=== PATIENT | male | born 1975 | race Caucasian/White ===

== ENCOUNTER 2024-11-21 07:07 | Emergency (ER) | payer OTHER, SELFPAY ==
[2024-11-21 07:17] VITALS: BP 130/90
--- NOTE | 2024-11-21 08:00 | ED.GENMED ---
History of Present Illness
General
Chief Complaint: Crisis Evaluation
Source: family
Time Seen by Provider: 11/21/24 07:38
History of Present Illness
History of Present Illness:
49-year-old male with no reported past medical history presenting to the ER with daughter and niece for evaluation after they were concerned about patient's mental health stating that the patient over the last few weeks has been accusing his of
cheating on him and trying to find evidence of the cheating on him. They are also stating that the patient believes that family members are not actually his children despite family noting that there is no reason for him to suspect that they
would not be his children. There is reported alcohol use however the daughter notes patient has not been drinking the last 2 days. They do state patient has not been sleeping very well and is up late into the middle of the night making lots of
noise difficult for everybody else to sleep. Patient has also been calling family within the [facility] attempting to figure out who his had on him with in the past. Patient is without any specific concerns at this time physically. Family
reports no history of mental health issues.
Past History
Past History
ED Past Medical History: None
ED Past Surgical History: None
Social History
Tobacco: Smoker
Alcohol: Daily
Drug: None
Personal:
Living: with family
Review of Systems
Review of Systems
All Other Systems: ROS reviewed and negative except as documented in HPI and ROS
Phy Exam
Physical Exam
Physical Exam:
GENERAL: Alert , in no apparent distress
EYE: conjunctiva clear
Head: Normocephalic atraumatic
NECK: Supple,
ENT: mmm.
LUNGS: no acute respiratory distress
NEUROLOGICAL: Alert and oriented
SKIN: Warm and dry, skin intact.
MUSCULOSKELETAL: well perfused.
PSYCH: Normal and appropriate interaction.
Scores
Heart Failure Risk
Heart Failure Risk Score: Not Applicable
Heart Score for Chest Pain Patients
STEMI patient?: Not applicable
Withdrawal Assessment of Alcohol
Withdrawal Assessment Completed?: Not applicable
Course
Orders/Labs/Results
Orders:
Orders
11/21/24 07:38
1:1 Observation - Suicide/ Violent Behavior As Directed
11/21/24 07:44
Crisis Consult Urgent
Reason for Consult: delusional behavior
Comment: Denies SI
11/21/24 08:16
Alcohol Urgent
Complete Blood Count/With Diff Urgent
Comprehensive Metabolic Panel Urgent
Drug Screen, Urine [Urine Drug Abuse Screen] Urgent
Date Specimen was Collected: 11/21/24
Time Specimen was Collected: 08:09
Abnormal Lab Results
11/21/24
08:16
WBC 11.2 H 10^3/uL
(4.8-10.8)
Absolute Neuts (auto) 9.2 H 10^3/uL
(1.4-6.5)
Absolute Lymphs (auto) 1.0 L 10^3/uL
(1.2-3.4)
Absolute Monos (auto) 0.9 H 10^3/uL
(0.1-0.6)
Neutrophils % 81.9 H %
(42.2-75.2)
Lymphocytes % 8.8 L %
(20.5-51.1)
BUN 6 L mg/dl
(9-20)
Glucose 118 H mg/dl
(70-99)
11/21/24 08:16
11/21/24 08:16
Vital Signs
Initial and Last Documented VS:
Initial Vital Signs
Temp Pulse Resp BP Pulse Ox
98.7 F 82 16 130/90 100
11/21/24 07:17 11/21/24 07:17 11/21/24 07:17 11/21/24 07:17 11/21/24 07:17
Last Documented Vital Signs
Temp Pulse Resp BP Pulse Ox
98.3 F 78 18 141/70 98
11/21/24 12:52 11/21/24 12:52 11/21/24 12:52 11/21/24 12:52 11/21/24 12:52
MDM/Problems Addressed
Differential Diagnosis Includes:
Alcohol abuse, psychosis, bipolar disorder, depression, minimal concern for any medical cause of delirium
MDM/Problems Addressed:
49-year-old male presenting to the ER for evaluation with family for reports of mental health issues. Patient believing has been cheating on him, very accusatory towards family, questionable increased alcohol intake. Patient calm and
cooperative here. He is in no acute distress. Labs including alcohol level ordered. Crisis consultation ordered. Disposition pending.
*Pulse Oximetry
Patient hypoxic: no
*Critical Care Note
Total Time (30-74mins, 75-104mins- exclusive of procedures): Not Applicable
Patient Management
Escalation/DeEscalation of care consider admission/obs:
Patient seen and cleared by crisis as well as had 302 petition denied. Patient not a candidate for voluntary psychiatric admission and is otherwise stable for discharge home and outpatient management.
ED Attending Note
-
Portions of this chart may have been created with voice recognition software.� Occasional wrong word or��sound alike� substitutions may have occurred due to the inherent limitations of voice recognition software.
Discharge Plan
Departure
Patient Disposition: Home (Routine Discharge)
Date of Disposition: 11/21/24
Time of Disposition: 12:30
Patient with high blood pressure during this ER visit?: No
Discharge Problem:
Alcohol use
Referrals:
NONE,* [Family Provider] -
Interventions
Interventions:
*Risk Screen - Suicide Last Done: 11/21/24 07:17
*General Assessment Last Done: 11/21/24 07:34
*Neglect/Abuse Screening Last Done: 11/21/24 07:17
ED- Fall Risk Assessment Last Done: 11/21/24 08:48
*ED COVID-19 Vaccine History Last Done: 11/21/24 07:17
*Nursing Disposition Last Done: 11/21/24 12:52
ED-Psychological Assessment Last Done: 11/21/24 08:47
Discharge Date and Time
Discharge Date/Time: 11/21/24 12:53
Print Language: Ukranian
[2024-11-21 08:33] LABS: % Basophils 0.4 % (0-2); % Eosinophils 0.4 % (0-6); % Immature Granulocytes 0.3 % (0-0.5); % Lymphocytes 8.8 % (20.5-51.1); % Monocytes 8.2 % (1.7-9.3); % Neutrophils 81.9 % (42.2-75.2); Absolute Basophils 0.1 10^3/uL (0-0.2); Absolute Eosinophils 0.1 10^3/uL (0-0.7); Absolute Monocytes 0.9 10^3/uL (0.1-0.6); Absolute Neutrophils 9.2 10^3/uL (1.4-6.5); Hematocrit 50.2 % (39.0-52.0); Hemoglobin 17.4 g/dL (13.0-18.0); Mean Corp Hgb Conc. 34.7 g/dL (33.0-37.0); Mean Corpuscular Hgb 30.4 pg (27.0-31.0); Mean Corpuscular Volume 87.6 fL (80.0-94.0); Mean Platelet Volume 9.2 fL (7.4-10.4); Nucleated Red Blood Cells % 0 % (-); Platelet Count 274 10^3/uL (130-400); Red Blood Cell Count 5.73 10^6/uL (4.70-6.10); Red Cell Dist. Width 13.3 % (11.5-14.5); White Blood Cell Count 11.2 10^3/uL (4.8-10.8)
[2024-11-21 08:44] LABS: ALT (SGPT) 38 U/L (0-50); AST (SGOT) 35 U/L (17-59); Albumin 4.8 g/dl (3.5-5.0); Alcohol None Detected; Alkaline Phosphatase 60 U/L (38-126); Blood Urea Nitrogen 6 mg/dl (9-20); Calcium 10.1 mg/dl (8.4-10.2); Carbon Dioxide 30 mmol/L (22-30); Chloride 102 mmol/L (98-107); Glucose 118 mg/dl (70-99); Sodium 140 mmol/L (135-145); Total Protein 7.7 g/dl (6.3-8.2); eGFR > 60.00
[2024-11-21 09:02] LABS: Amphetamines Negative (Negative); Barbiturates Negative (Negative); Benzodiazepines Negative (Negative); Buprenorphine Negative (Negative); Cocaine Negative (Negative); Marijuana Negative (Negative); Methadone Negative (Negative); Methamphetamines Negative (Negative); Opiates Negative (Negative); Phencyclidine Negative (Negative); Tricyclic Antidepressants Negative (Negative)
[2024-11-21 12:52] VITALS: BP 141/70
== END 2024-11-21 12:53 | disposition home or self-care (01) ==
LOC: EMR 07:07
PROVIDERS: Physician Assistant Medical; EMERGENCY PHYSICIAN Emergency Medicine
DX: F10.90 Alcohol use, unspecified, uncomplicated (principal); G47.00 Insomnia, unspecified; F22 Delusional disorders; F17.200 Nicotine dependence, unspecified, uncomplicated
CPT/HCPCS: 99283; 80053; 80306; 82077; 85025